=== PATIENT | male | born 1970 | race Caucasian/White ===

== ENCOUNTER 2018-09-22 12:52 | Emergency (ER) | payer BC, OTHER ==
[~2018-09-22] VITALS: Ht 180.3 cm; Wt 90.9 kg
[2018-09-22] MEDS ORDERED: ZOLOFT25 MG PO (13:46)
[2018-09-22] MEDS ORDERED: PERCOCET 5/325M1 TAB PO (14:53)
[2018-09-22 14:57] VITALS: BP 139/91
== END 2018-09-22 14:57 | disposition home or self-care (01) | DRG 563 ==
LOC: ED 12:52
PROC: 2W3RX1Z Immobilization of Left Lower Leg using Splint (ICD-10-PCS; principal; 2018-09-22)
DX: S82.302A Unspecified fracture of lower end of left tibia, initial encounter for closed fracture (principal); S82.832A Other fracture of upper and lower end of left fibula, initial encounter for closed fracture; S00.411A Abrasion of right ear, initial encounter; S80.212A Abrasion, left knee, initial encounter; W55.19XA Other contact with horse, initial encounter; Y93.89 Activity, other specified; Y92.39 Other specified sports and athletic area as the place of occurrence of the external cause